=== PATIENT | male | born 2000 | race Two or more races ===

== ENCOUNTER 2019-10-17 19:50 | Emergency (ER) | payer SELFPAY ==
[2019-10-17] MEDS ORDERED: Ketorolac 60 MG/2 ML SDV IM ONE (20:12)
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
--- NOTE | 2019-10-17 20:51 | CR ---
Lumbar spine: AP, lateral and coned-down lateral views centered to the lumbosacral junction were obtained. Comparison: No previous lumbar spine imaging. Vertebral body heights and disc spaces are maintained. Pedicles are intact. Transverse and spinous processes appear intact. No discrete fracture or subluxation is seen. Sacroiliac joints are within normal limits. Impression: 1. No abnormality is appreciated on three-view lumbar spine exam. Diagnostic code #1 This report was dictated in MDT
== END 2019-10-17 21:04 | disposition home or self-care (01) ==
LOC: MW.ED 19:50
DX: M54.5 Low back pain (principal); Z88.6 Allergy status to analgesic agent; Z79.899 Other long term (current) drug therapy
CPT/HCPCS: 72100; 96372; 99283; J1885